=== PATIENT | female | born 1985 | race Caucasian/White ===

== ENCOUNTER 2018-05-12 19:19 | Emergency (ER) | payer OTHER ==
[~2018-05-12] VITALS: Ht 157.5 cm; Wt 86.2 kg
[~2018-05-12 19:19] MED LIST: AUGMENTIN 875875 MG PO; NORCO 5-325 TA1 EAC1 PO; NORCO 5-325 TA1 EACH PO; PEPCID20 MG PO; PRENATAL
[2018-05-12 20:35] VITALS: BP 132/82
== END 2018-05-12 20:37 | disposition home or self-care (01) ==
LOC: M.ERS 19:19
DX: S93.491A Sprain of other ligament of right ankle, initial encounter (principal); A59.9 Trichomoniasis, unspecified; Z90.49 Acquired absence of other specified parts of digestive tract; X58.XXXA Exposure to other specified factors, initial encounter; Y92.89 Other specified places as the place of occurrence of the external cause; Y93.89 Activity, other specified; Y99.8 Other external cause status

== ENCOUNTER 2018-08-28 16:23 | Emergency (ER) | payer OTHER ==
[~2018-08-28] VITALS: Ht 157.5 cm; Wt 89.4 kg
[2018-08-28 16:38] LABS: URINE BILIRUBIN NEGATIVE (Negative); URINE BLOOD NEGATIVE (Negative); URINE CLARITY CLEAR; URINE COLOR YELLOW; URINE GLUCOSE-RANDOM NEGATIVE (Negative); URINE KETONES NEGATIVE (Negative); URINE NITRITE-REFLEX NEGATIVE (Negative); URINE PROTEIN NEGATIVE (Negative); URINE SPECIFIC GRAVITY 1.015 (1.005-1.030); URINE UROBILINOGEN 0.2 E.U./dl (0.2-1.0)
[2018-08-28 16:39] LABS: URINE LEUKOCYTES-REFLEX 3+ (Negative)
[2018-08-28 16:45] LABS: BACTERIA-REFLEX 1-9 Few /HPF (None Seen); CASTS None Seen /LPF (None Seen); CRYSTALS None Seen /LPF (None Seen); SQUAMOUS NONE SEEN /LPF (0-3); URINE RBC 0-2 Rare /HPF (0-2); URINE WBC-REFLEX 0-5 Rare /HPF (0-5)
[2018-08-28 17:21] LABS: ABSOLUTE BASOPHILS 0.1 thou/uL (0.0-0.2); ABSOLUTE EOSINOPHILS 0.3 thou/uL (0.0-0.7); ABSOLUTE LYMPHOCYTES 2.5 thou/uL (0.8-5.3); ABSOLUTE MONOCYTES 0.8 thou/uL (0.0-1.2); BASOPHILS 0.8 %; EOSINOPHILS 2.8 %; HEMATOCRIT 37.8 % (37.0-47.0); HEMOGLOBIN 12.4 gm/dL (12.0-15.0); LYMPHOCYTES 26.2 %; MCH 26.2 pg (26.0-34.0); MCHC 32.7 g/dL (28.0-37.0); MONOCYTES 7.9 %; MPV 10.2 fl. (7.2-11.1); NUCLEATED RBCS 0 /100WBC; PLATELET COUNT* 177 thou/uL (150-400); POLYS 62.3 %; RBC 4.72 mil/uL (4.20-5.00); RDW-CV 15.5 % (10.5-14.5); WBC 9.7 thou/uL (4.0-11.0)
[2018-08-28 17:28] LABS: CALCIUM 9.2 mg/dL (8.5-10.1); CREATININE 0.9 mg/dL (0.6-1.3); POTASSIUM 3.6 mmol/L (3.5-5.1)
[2018-08-28 17:32] LABS: ALBUMIN 3.8 g/dL (3.4-5.0); TOTAL BILIRUBIN 0.3 mg/dL (<0.1-1.0)
[2018-08-28] MEDS ORDERED: IBUPROFEN 400400 M1 PO (18:00)
[2018-08-28 18:01] VITALS: BP 127/79
== END 2018-08-28 18:05 | disposition home or self-care (01) ==
LOC: M.ERS 16:23
PROVIDERS: Nurse Practitioner Family
DX: K80.50 Calculus of bile duct without cholangitis or cholecystitis without obstruction (principal); M94.0 Chondrocostal junction syndrome [Tietze]; Z90.49 Acquired absence of other specified parts of digestive tract

== ENCOUNTER → 2020-09-13 | Outpatient (CLI) | payer OTHER ==
[~2020-09-13] MED LIST changes: +IBUPROFEN 400400 M1 PO; +WELLBUTRIN SR150 MG PO
== END ==
LOC: M.LAB 11:38
PROVIDERS: ATTEND Podiatrist
DX: Z01.812 Encounter for preprocedural laboratory examination (principal); Z20.822 Contact with and (suspected) exposure to COVID-19

== ENCOUNTER → 2020-09-16 | Day surgery (SDC) | payer OTHER ==
[~2020-09-16] MED LIST changes: +NORCO5 PO
--- NOTE | 2020-09-17 16:51 | OP ---
[address] [address] OPERATIVE REPORT Name: ADELAIDE MCDANIEL Room: [facility]#: [id number] Admission: 09/16/20 Attend Phys: Emely Brown, Discharge: Date of : 85 Report #: [id number] THIS REPORT FOR: cc: Yadira Phillips. Eliska. FUNMI Rascon ~ Emely Brown DPM DATE OF SERVICE: 09/16/2020 SURGEON: Emely Brown DPM PREOPERATIVE DIAGNOSES: Posterior tibial tendinitis right ankle, plantar fasciitis right foot and right foot and ankle pain. POSTOPERATIVE DIAGNOSES: Posterior tibial tendinitis right ankle, plantar fasciitis right foot and right foot and ankle pain. BOX STAMPER: None. PROCEDURES PERFORMED: Posterior tibial tendon repair and synovectomy right foot and plantar fasciotomy right foot. PATHOLOGY: Pathology was also sent, tendon sheath and tendon right foot. ANESTHESIA: General with local. HEMOSTASIS: Pneumatic thigh tourniquet at 300 mmHg. ESTIMATED BLOOD LOSS: 5 mL. MATERIALS USED: 2-0 Vicryl, 4-0 Vicryl, 3-0 nylon and 4-0 nylon. INJECTABLES: 10 mL of 1:1 mixture of 0.5% Marcaine plain and 1% lidocaine plain. COMPLICATIONS: None. PROCEDURE IN DETAIL: The patient was brought in to the operating room and placed on the operating room table in the supine position. At this time, a pneumatic thigh tourniquet was also placed about the patient's right upper thigh with adequate padding noted. Once the patient was placed under general anesthesia, local infiltrative block was then also placed about the patient's right ankle with use of 10 mL of 1:1 mixture of 0.5% Marcaine plain and 1% lidocaine plain. Local timeout was also performed at this time with all personnel present in the room were in agreement at this time. The patient's right lower extremity was then scrubbed, prepped and [place] [address] OPERATIVE REPORT Name: ADELAIDE MCDANIEL Room: [facility].#: [id number] Admission: 09/16/20 Attend Phys: Emely Brown, Discharge: Date of : 85 Report #: [id number] manner. The right foot was then exsanguinated utilizing an Esmarch bandage and the pneumatic thigh tourniquet was then inflated to 300 mmHg. Attention was then directed to the medial aspect of the patient's right foot and ankle where an incision was then made at the insertion of the posterior tibial tendon along the navicular tuberosity and extended just about 1 cm proximal to the tip of the medial malleolus. Incision was made with a #15 blade down to the level of subcutaneous tissue. Care was taken to identify and retract all vital neurovascular structures and bleeding was controlled with Bovie cauterization. Further dissection was then completed at this time, using a mixture of blunt and sharp dissection with use of tenotomy scissors until we were able to reach the capsular structures and surrounding tissue of the posterior tibial tendon. It is important to note that once the incision was then made to access the posterior tibial tendon, ____ the tendon synovium and joint fluid was herniating out through this area and the synovial tendon sheath was noted to be significantly inflamed, red and thickened as well as dystrophic. Further dissection was then made at the insertion of posterior tendon. An incision was then extended to just posterior to the level of the medial malleolus. Extensive synovitis was noted throughout and was debrided at this time utilizing a mixture of sharp dissection and rongeur. At this time, examination of the tendon was noted to have some mild thickening at the insertion of the posterior tibial tendon and some yellow discoloration at the site that extended approximately 2 cm proximally. The dystrophic and thickened portion of the tendon was then debrided utilizing #15 blade at this time, passing operative field for pathology as well. Next, the surgical site was then copiously irrigated with sterile normal saline. The sites of extensive synovitis were then also cauterized at this time, utilizing Bovie cauterization. Surgical site was then again copiously irrigated and the debrided area of the tendon was then repaired utilizing 2-0 PDS in a running suture fashion. Once this was completed, all deep structures and remaining tendon sheath was then reapproximated utilizing 2-0 Vicryl and the subcuticular tissue reapproximated utilizing 4-0 Vicryl. At this time, it is important to note that the tendon was noted to be able to easily glide throughout the remainder of the tendon sheath prior to closure. Attention was then directed to the plantar aspect of the patient's right foot where just distal to the plantar heel pad on the medial aspect, a horizontal incision was then made approximately 1 cm in length down to the level of subcutaneous tissue with #15 blade. The remaining dissection was done via blunt dissection down to the level of the plantar fascia. Plantar fascia was then visualized at this time, noted to not have any discoloration at this time and was then transected along the central aspect medially encompassing approximately one-third of the plantar fascia at this time to the level of the muscle. Care was taken not to transect the muscle itself. Upon transection thickening of the plantar fascia was noted at this time. Surgical site was then copiously irrigated and all transected fibers were verified at this time and there was a [facility] [address] [place] [address] OPERATIVE REPORT Name: ADELAIDE MCDANIEL Room: [facility]#: [id number] Admission: 09/16/20 Attend Phys: Emely Brown, Discharge: Date of : 85 Report #: [id number] release of the plantar fascia that was released without prominence noted when the patient's foot was loaded. The subcutaneous tissue was closed via 2-0 Vicryl and the skin was reapproximated utilizing 3-0 nylon in horizontal stitch fashion. The medial incision at this time was then closed at this level of skin with 4-0 nylon in a simple suture fashion. The pneumatic ankle tourniquet was also deflated at this time and there is a prompt hyperemic response noted to the patient's right lower extremity. Site was then cleansed and dressed with Adaptic, 4 x 4 gauze, Kerlix and tape and a [id number], posterior splint was then placed with the patient's ankle in neutral dorsiflexion at this time. The patient tolerated the procedure and anesthesia well and was transferred from the operating room to the recovery room with vital signs stable and neurovascular status intact to the right lower extremity. The patient postoperatively is to receive a femoral block for pain management postoperatively and she is to be nonweightbearing in wheelchair at this time. Encouraged to call with any questions or concerns and was given hydrocodone 5/325 for pain management as well. The patient is to follow up within 1 week's time. <ELECTRONICALLY SIGNED> By: Emely Brown DPM 09/17/20 1651 1151 [id number] Brown DPM /nt
--- NOTE | 2020-09-20 17:06 | PATH ---
[facility] [address] [place] [address] PATHOLOGY RPT PROCEDURE Name: ADELAIDE MCDANIEL Joe Room: [facility] Shaun#: [id number] Admission: 09/16/20 Date of : 85 Discharge: Report #: [id number] Path Case #: [id number] [facility] Accession Number: [id number] . 01 Material submitted: . ankle - RIGHT ANKLE TENDON AND TENDON SHEATH. Modifiers: right . 01 Clinical history: . POSTERIOR TIBIAL TENDONITIS PLANTAR FASCITIS . 02 Diagnosis: Right tendon and sheath right ankle: - Severe chronic synovitis and tendonitis. See comment. LBQ 09/20/2020 1213 Local . 02 Comment: Prominent well-formed hyperplastic lymphoid follicles in association with many plasma cells are present raising the possibility of rheumatoid synovitis. ([facility]/db; 09/20/2020) . 02 Electronically signed: . Caleb Washington MD, Pathologist NPI- [id number] . 01 Gross description: . Received in formalin labeled "ArthurAdelaide, right tendon and sheath right ankle" are 2 irregular, dobson brown rubbery portions of soft tissue measuring 2.1 x 0.9 x 0.7 cm and 1.9 x 0.6 x 0.3 cm. The specimen is serially sectioned to reveal a dobson-brown cut surface. Court Clerk sections of the specimen are submitted in cassette A1. ([facility]; 09/18/2020) GZA/GZA 09/18/2020 1033 Local . 02 Pathologist provided ICD-10: M65.871 . 02 CPT . 840508 Specimen Comment: Report sent to / Performed at: 01 [facility] [address] [place] [address] [address], [place] [id number] MD Renzo Gregorio MD Phone: [phone] Performed at: [address] [address] [address], [place], [place] [id number] MD Caleb Washington MD Phone: [phone]
== END | disposition home or self-care (01) ==
LOC: M.SUR 05:17
PROVIDERS: ATTEND Podiatrist
DX: M76.821 Posterior tibial tendinitis, right leg (principal); M72.2 Plantar fascial fibromatosis; M65.871 Other synovitis and tenosynovitis, right ankle and foot; M19.90 Unspecified osteoarthritis, unspecified site; F41.9 Anxiety disorder, unspecified; D64.9 Anemia, unspecified; Z98.890 Other specified postprocedural states; Z79.899 Other long term (current) drug therapy; Z90.49 Acquired absence of other specified parts of digestive tract; Z87.891 Personal history of nicotine dependence; Z98.51 Tubal ligation status

== ENCOUNTER 2021-04-04 17:35 | Emergency (ER) | payer OTHER ==
[~2021-04-04] VITALS: Ht 157.5 cm; Wt 86.2 kg
[2021-04-04 17:43] VITALS: BP 138/86
[2021-04-04] MEDS ORDERED: [UNRECOGNIZED DRUG - REMARK] (17:45)
[2021-04-04] MEDS ORDERED: HYDROXYZINE HCL25 M2 PO (17:51)
--- NOTE | 2021-04-04 17:54 | EKG ---
[place] [address] ELECTROCARDIOGRAM REPORT Name: ADELAIDE MCDANIEL Room: [facility]#: [id number] Admission: Attend Phys: Discharge: Date of : 85 Date of Service: 04/04/21 1737 Report #: [id number] THIS REPORT FOR: //name// [facility] ED Test Date: 2021-04-04 Test Time: 17:37:27 Pat Name: ADELAIDE MCDANIEL Department: Room: Gender: F Implant Coordinator: [facility] : 1985 Requested By: Kirk Frazier Order Number: [id number] MD: Campos Seals Measurements Intervals [place] Rate: 98 P: 55 ME: 150 QRS: 34 QRSD: 92 T: 50 QT: 329 QTc: 421 Interpretive Statements Sinus rhythm Baseline wander in lead(s) II,III,aVF,V2 No previous ECG available for comparison Electronically Signed On 04-04-2021 17:54:33 CDT by Campos Seals [email or web address] <ELECTRONICALLY SIGNED> By: Campos Seals MD, [facility] 04/04/21 1754 1737 173 Campos Seals MD, [facility] /EPI
[2021-04-05] MEDS ORDERED: NEURONTIN100 MG PO (10:40)
[2021-04-05] MEDS ORDERED: ZPAK PO (13:17)
[2021-04-05] MEDS ORDERED: DEXAMETHASONE 44 M1 PO (13:17)
== END 2021-04-04 18:00 | disposition home or self-care (01) ==
LOC: M.ERS 17:35
DX: F41.0 Panic disorder [episodic paroxysmal anxiety] (principal); J02.9 Acute pharyngitis, unspecified; Z90.49 Acquired absence of other specified parts of digestive tract; Z98.51 Tubal ligation status; Z79.899 Other long term (current) drug therapy

== ENCOUNTER 2021-04-05 10:23 | Emergency (ER) | payer OTHER ==
[~2021-04-05] VITALS: Ht 157.5 cm; Wt 86.2 kg
[~2021-04-05 10:23] MED LIST changes: +HYDROXYZINE HCL25 M2 PO; +[UNRECOGNIZED DRUG - REMARK]
[2021-04-05] MEDS ORDERED: NEURONTIN100 MG PO (10:40)
[2021-04-05 12:46] LABS: URINE BILIRUBIN NEGATIVE (Negative); URINE BLOOD NEGATIVE (Negative); URINE CLARITY CLEAR; URINE COLOR YELLOW; URINE GLUCOSE-RANDOM NEGATIVE (Negative); URINE KETONES NEGATIVE (Negative); URINE LEUKOCYTES-REFLEX TRACE (Negative); URINE NITRITE-REFLEX NEGATIVE (Negative); URINE PROTEIN NEGATIVE (Negative); URINE SPECIFIC GRAVITY >= 1.030 (1.005-1.030); URINE UROBILINOGEN 0.2 E.U./dl (0.2-1.0)
[2021-04-05] MEDS ORDERED: DEXAMETHASONE 44 M1 PO (13:17)
[2021-04-05] MEDS ORDERED: ZPAK PO (13:17)
[2021-04-05 13:33] LABS: SQUAMOUS >10 Many /LPF (0-3)
[2021-04-05 13:34] LABS: URINE RBC 0-2 Rare /HPF (0-2); URINE WBC-REFLEX 0-5 Rare /HPF (0-5)
[2021-04-05 13:35] LABS: BACTERIA-REFLEX None Seen /HPF (None Seen); CASTS None Seen /LPF (None Seen); CRYSTALS None Seen /LPF (None Seen); MUCUS 0-3 Light strn/LPF (None Seen)
[2021-04-05 13:43] VITALS: BP 132/70
== END 2021-04-05 13:44 | disposition home or self-care (01) ==
LOC: M.ERS 10:23
PROVIDERS: Physician Assistant
DX: U07.1 COVID-19 (principal); R07.89 Other chest pain; Z90.89 Acquired absence of other organs; Z98.51 Tubal ligation status